=== PATIENT | male | born 1980 ===

== ENCOUNTER 2016-08-22 15:18 | Emergency (ER) | payer OTHER, SELFPAY ==
[2016-08-22 15:34] VITALS: RESP 18
[2016-08-22] MEDS ORDERED: Sodium Chloride 0.9% 1,000 ML IV ONE (16:25)
[2016-08-22] MEDS ORDERED: Sodium Chloride 0.9% 1,000 ML ONE (16:36)
[2016-08-22 16:50] LABS: BASO % 0.2 % (0.0-2.0); EOS # 0.2 K/uL (0.0-0.7); EOS % 1.9 % (0.0-4.0); HEMATOCRIT 39.8 % (35.0-51.0); LYMPH # 2.6 K/uL (1.0-4.3); MEAN CORPUSCULAR HEMOGLOBIN 27.2 pg (27.0-31.0); MEAN CORPUSCULAR HGB CONC 33.2 g/dL (33.0-37.0); MEAN PLATELET VOLUME 8.5 fL (7.2-11.7); MONO # 0.6 K/uL (0.0-0.8); MONO % 7.3 % (0.0-10.0); RED CELL DISTRIBUTION WIDTH 13.5 % (11.5-14.5); WHITE BLOOD COUNT 8.2 K/uL (4.8-10.8)
[2016-08-22 16:54] LABS: URINE BILIRUBIN NEGATIVE (NEGATIVE); URINE BLOOD NEGATIVE (NEGATIVE); URINE COLOR Straw (YELLOW); URINE GLUCOSE (UA) NORMAL (Normal); URINE KETONE NEGATIVE (NEGATIVE); URINE LEUKOCYTE ESTERASE NEG Leu/uL (Negative); URINE PROTEIN NEGATIVE (NEGATIVE); URINE UROBILINOGEN NORMAL mg/dL (0.2-1.0); WBC URINE < 1 /hpf (0-5)
[2016-08-22 16:58] LABS: CHLORIDE 99 mmol/L (98-107); POTASSIUM 3.8 mmol/L (3.6-5.2); SODIUM 139 mmol/L (132-148)
[2016-08-22 17:01] LABS: BLOOD UREA NITROGEN 17 mg/dL (9-20); CARBON DIOXIDE 26 mmol/L (22-30); GFR AFRICAN-AMERICAN > 60; MEAN CELL VOLUME 81.9 fL (80.0-94.0)
[2016-08-22 17:02] LABS: CALCIUM 8.7 mg/dl (8.6-10.4); GLUCOSE,RANDOM 90 mg/dL (75-110)
--- NOTE | 2016-08-22 17:30 | C.PDOC ---
History Of Present Illness 36 yo male come in for evaluation of Right flank pain gradually developed for past 5-6 days radiating to Right groin area, intermittent pain on urination. Pain is sharp in nature, intermittent and worse with movement. Otherwise, pt denies fever, chills, known trauma or injury, sore throat, abd. pain, N/V, hematuria, back pain, testicular pain or swelling. Ambulate to Ed for evaluation , not in any apparent distress. Pt denies previous hx of kidney stone or any other significant hx. Time Seen by Provider: 08/22/16 16:00 Chief Complaint (Nursing): Male Genitourinary History Per: Patient Onset/Duration Of Symptoms: Gradual Current Symptoms Are (Timing): Still Present Past Medical History Reviewed: Historical Data, Nursing Documentation, Vital Signs Vital Signs: Last Vital Signs Temp 98.5 F 08/22/16 15:31 Pulse 86 08/22/16 15:31 Resp 18 08/22/16 15:31 BP 157/88 H 08/22/16 15:31 Pulse Ox 96 08/22/16 17:55 - Medical History PMH: No Chronic Diseases Surgical History: No Surg Hx Family History: States: No Known Family Hx - Social History Hx Tobacco Use: No Hx Alcohol Use: No Hx Substance Use: No - Immunization History Hx Influenza Vaccination: No Review Of Systems Except As Marked, All Systems Reviewed And Found Negative. Constitutional: Negative for: Fever, Chills ENT: Negative for: Throat Pain Cardiovascular: Negative for: Chest Pain Respiratory: Negative for: Cough, Shortness of Breath Gastrointestinal: Negative for: Nausea, Vomiting, Abdominal Pain, Diarrhea Genitourinary: Positive for: Dysuria. Negative for: Frequency, Incontinence, Hematuria, Penile Discharge, Scrotal Pain Musculoskeletal: Positive for: Back Pain Skin: Negative for: Rash Neurological: Negative for: Weakness, Numbness, Altered Mental Status, Headache , Dizziness Physical Exam - Physical Exam Appears: Well, Non-toxic, No Acute Distress Skin: Normal Color, Warm, Dry, No Rash Eye(s): bilateral: Normal Inspection Nose: Normal Oral Mucosa: Moist Throat: Normal, No Erythema, No Exudate, No Drooling Neck: Normal, Normal ROM, Supple Cardiovascular: Rhythm Regular Respiratory: Normal Breath Sounds, No Stridor, No Wheezing Gastrointestinal/Abdominal: Normal Exam, Soft, No Tenderness, No Distention, No Guarding, No Rebound Back: Normal Inspection, No CVA Tenderness, Other (mild Right flank tenderness.) Male Genital: Normal Inspection, Inguinal Tenderness (mild), No Scrotal Swelling Extremity: Normal ROM, No Pedal Edema Neurological/Psych: Oriented x3, Normal Speech ED Course And Treatment - Laboratory Results Result Diagrams: 08/22/16 16:43 08/22/16 16:43 Lab Interpretation: Normal O2 Sat by Pulse Oximetry: 96 Pulse Ox Interpretation: Normal - CT Scan/US CT - Abd & Pelvis Other Rad Studies (CT/US): Read By Radiologist, Radiology Report Reviewed CT/US Interpretation: PROCEDURE: CT Abdomen and Pelvis without Oral or IV contrast. HISTORY: Right flank pain. COMPARISON: None available. TECHNIQUE : Contiguous axial images of the abdomen and pelvis. No oral or IV contrast administered. Coronal and Sagittal reformats generated and reviewed. Radiation dose: Total exam DLP = 996.97 mGy-cm. FINDINGS: There is limited evaluation of the solid organs without the administration of IV contrast. LOWER THORAX: No visible consolidation, pleural effusion, or pneumothorax. Small hiatal hernia. LIVER: Unremarkable unenhanced appearance. GALLBLADDER AND BILE DUCTS : Decompressed gallbladder appears otherwise unremarkable. PANCREAS: Unremarkable unenhanced appearance. SPLEEN: Unremarkable unenhanced appearance. ADRENALS: Unremarkable unenhanced appearance. KIDNEYS AND URETERS : No hydronephrosis or obstructing renal calculus. BLADDER: The urinary bladder appears unremarkable. REPRODUCTIVE: Unremarkable. APPENDIX: The appendix appears within normal limits of caliber. No secondary signs of acute appendicitis. BOWEL: The stomach is nondistended. Lack of oral contrast limits evaluation for bowel pathology. The bowel loops appear within normal limits of caliber without evidence of intestinal obstruction. Moderate constipation. PERITONEUM: No significant free fluid. No definite free air. LYMPH NODES: No bulky lymphadenopathy identified. VASCULATURE: No aortic aneurysm. BONES: Mild degenerative changes. OTHER FINDINGS: Small fat containing umbilical hernia. Fat containing left inguinal hernia. IMPRESSION: Moderate constipation. Progress Note: Pt was OBS in ED for 2 hours and reports mod improvement in pain. on re-evaluation, pt is afebrile, hemodynamicaly stable. Non-toxic. Ambulatory in ED with stable gait. Tolerate Po well in ED. ENT: no acute findings. neck: (-) meningeal sign. Lungs: CTA B/L, BS equal B/L. Abd: benign. BacK : (+) Right flank tenderness, (-) CVA tenderness. neurologicaly intact. Blood wrok review and appears normal, UA- normal. Imaging review and appears withut acute abnormalities. Pt has clinical findings c/w falnk pain, constipation. pt advised and ref. to F/u with PMD in 1-2 days for re-eavl. return if any new changes. Disposition Counseled Patient/Family Regarding: Studies Performed, Diagnosis, Need For Followup, Rx Given - Disposition Referrals: [facility] [Outside] Disposition: HOME/ ROUTINE Disposition Time: 17:27 Condition: STABLE Additional Instructions: Light duty to Right lower back Take pain medication as prescribed Follow up with PMD In 2-3 days for re-evaluation. Return to ED if any worsening or new changes. Prescriptions: Bisacodyl [Ducolax] 5 mg PO DAILY #10 ect Instructions: Flank Pain (ED), Constipation (ED) Print Language: OCCITAN - Clinical Impression Clinical Impression: Flank pain, Constipation
--- NOTE | 2016-08-22 17:55 | CT ---
PROCEDURE: CT Abdomen and Pelvis without Oral or IV contrast. HISTORY: Right flank pain COMPARISON: None available TECHNIQUE: Contiguous axial images of the abdomen and pelvis. No oral or IV contrast administered. Coronal and Sagittal reformats generated and reviewed. Radiation dose: Total exam DLP = 996.97 mGy-cm. FINDINGS: There is limited evaluation of the solid organs without the administration of IV contrast. LOWER THORAX: No visible consolidation, pleural effusion, or pneumothorax. Small hiatal hernia. LIVER: Unremarkable unenhanced appearance. GALLBLADDER AND BILE DUCTS: Decompressed gallbladder appears otherwise unremarkable. PANCREAS: Unremarkable unenhanced appearance. SPLEEN: Unremarkable unenhanced appearance. ADRENALS: Unremarkable unenhanced appearance. KIDNEYS AND URETERS: No hydronephrosis or obstructing renal calculus. BLADDER: The urinary bladder appears unremarkable. REPRODUCTIVE: Unremarkable. APPENDIX: The appendix appears within normal limits of caliber. No secondary signs of acute appendicitis. BOWEL: The stomach is nondistended. Lack of oral contrast limits evaluation for bowel pathology. The bowel loops appear within normal limits of caliber without evidence of intestinal obstruction. Moderate constipation. PERITONEUM: No significant free fluid. No definite free air. LYMPH NODES: No bulky lymphadenopathy identified. VASCULATURE: No aortic aneurysm. BONES: Mild degenerative changes. OTHER FINDINGS: Small fat containing umbilical hernia. Fat containing left inguinal hernia. IMPRESSION: Moderate constipation.
[2016-08-22 18:20] VITALS: BP 128/68; PULSE 77; TEMP 98; O2SAT 98
== END 2016-08-22 18:20 | disposition home or self-care (01) ==
LOC: C.ER 15:18
DX: K59.00 Constipation, unspecified (principal); R10.31 Right lower quadrant pain
CPT/HCPCS: 74176; 80048; 81001; 85025; 87086; 87491; 87591; 96374; 99285; J1885; J7040